=== PATIENT | female | born 1985 | race Caucasian/White ===

== ENCOUNTER 2018-09-02 21:57 | Emergency (ER) | payer OTHER ==
[2018-09-02] MEDS: IBUPROFEN 600 MG TAB PO (23:01)
== END 2018-09-03 01:11 | disposition home or self-care (01) ==
LOC: FTE 09-03 01:11
DX: S61.101A Unspecified open wound of right thumb with damage to nail, initial encounter (principal); W22.8XXA Striking against or struck by other objects, initial encounter; Y92.9 Unspecified place or not applicable
CPT/HCPCS: 29130; 73140; 99283-25